=== PATIENT | female | born 1935 | race Caucasian/White ===

== ENCOUNTER → 2016-06-21 | Outpatient (CLI) | payer OTHER ==
[~2016-06-21] MED LIST: ALLO100T PO; AMLO5TAB2 PO; ASPI1TAB69 PO; ATOR40TA16 PO; CHOL100025 CHEW; FISHCAP4 PO; LEVO112T2 PO; LEVOCETIRIZINE; LEVOTAB PO; METO25TA3 PO
== END ==
LOC: CPRE 11:52
PROVIDERS: ATTEND Neurological Surgery
DX: Z01.812 Encounter for preprocedural laboratory examination (principal); M43.16 Spondylolisthesis, lumbar region; M51.36 Other intervertebral disc degeneration, lumbar region

== ENCOUNTER → 2016-06-22 | Day surgery (SDC) | payer OTHER ==
--- NOTE | 2016-06-21 18:40 | MH ---
cc: DAYA BUSBY M.D., DO M.D. SHARMA, KAVITA D.O. DATE OF ADMISSION: 06/22/2016 ADMITTING DIAGNOSIS: Lumbar spinal stenosis. HISTORY OF PRESENT ILLNESS: This is an 81 year-old female who we initially saw in the office for an evaluation of low back pain in September of 2013. She has previously had lumbar spine surgery in [address] Armijo which the records revealed a left L2-L3 microdiskectomy. She states she had two bad discs and had surgery on one. Although she improved after surgery, she had chronic low back pain since then. She stated at that time that she had left leg weakness and has fallen. She also has vascular disease in her legs and has had a right iliac stent placed several years ago, and in July of 2013, has had another stent placed in the left iliac artery. She has had extensive pain management which she states did not help. She has also had physical therapy which did not help with her pain. She has had several follow ups since her initial evaluation, in which she continued to complain of chronic low back pain and difficulty with ambulation. She complains of pain at her last visit radiating to bilateral groin as well as posterior thigh to the knees. She denies any paresthesias in the lower extremities. She states that if she sits down or lays down her pain improves. She complained of the left knee buckling but states that that does not happen often. She has been using a walker for a couple of years. She had physical therapy two years ago which did not help. She has had extensive pain management which also did not help. An MRI scan of the lumbar spine from June 03, 2016 was reviewed which reveals significant L2-L3, L3-L4 spinal stenosis from a combination of disc protrusion, facet arthropathy along with degenerative disc disease and a grade 1, L3-L4, L4-L5 spondylolisthesis. There is also an L1-L2 disc protrusion that appears somewhat improved from the previous MRI scan, although degenerative disc disease persists. PAST MEDICAL HISTORY: 1. Peripheral artery disease, status post stent placement, right and left groin in December of 2007 and November 2013. 2. Previous back surgery with Dr. Armijo in 2003 which was left L2-L3 microdiskectomy. 3. Right eye and muscle surgery in 1947. 4. Tonsillectomy in 1949. CURRENT MEDICATIONS: 1. Levothyroxine 112 milligrams daily. 2. Amlodipine 5 milligrams daily. 3. Aspirin 81 milligrams two tablets daily. This was placed on hold prior to surgical intervention. 4. Atorvastatin 40 milligrams q hs. 5. Metoprolol tartrate 25 milligrams b.i.d. 6. Fish oil 1200 milligrams daily. This was placed on hold prior to surgical intervention. 7. Levocetirizine DHCL 5 milligrams q hs. 8. Vitamin D3 2000 IU daily. 9. Allopurinol 100 milligrams p.o. daily ALLERGIES: OXYBUTYNIN LISINOPRIL CLASS OF MEDICATION, ARBS. ROM-PURE TOLTERODINE TARTRATE FAMILY HISTORY: Her father at 69 years old, heart disease. Mother at 83 years old, leukemia. Brother age 59, defective heart valve. Sister who is at 74 years old, another sister who is alive at 79 years old. SOCIAL HISTORY: She is . She has two children. She lives with her . She quit smoking in 2002. She does not drink alcohol. REVIEW OF SYSTEMS: CONSTITUTIONAL: She denies any fever or chills. EARS, NOSE, AND THROAT: No pharyngitis, exudates, or blood draining from nose. CARDIOVASCULAR: Denies chest pain or palpitations. RESPIRATORY: No cough or shortness of breath. GENITOURINARY: No dysuria, polyuria. MUSCULOSKELETAL: Positive for low back pain. SKIN: Positive for rashes and itching. NEUROLOGIC: No difficulty with speech or memory. GASTROINTESTINAL: No nausea, vomiting or abdominal pain. PSYCHIATRIC: Denies any anxiety or depression symptoms. ENDOCRINE: No polyuria, polydipsia. HEMATOLOGIC: No bruising or bleeding tendencies. PHYSICAL EXAMINATION: HEAD: Normocephalic, atraumatic. NECK: Supple. No carotid bruits heard on auscultation. LUNGS: Clear to auscultation bilaterally. HEART: Regular rate and rhythm. Normal S1, S2. ABDOMEN: Soft, nontender. Positive bowel sounds. SKIN: No cyanosis or erythema. MUSCULOSKELETAL: Strength is 5/5 in the lower extremities. She ambulates with a walker. NEUROLOGIC: The patient is awake, alert and oriented. Cranial nerves II through XII appear grossly intact. Speech is fluent. Comprehension is good. Sensation in the lower extremities is intact. Reflexes are 2+ in the lower extremities. IMPRESSION AND PLAN The patient is an 81 year-old female with a chronic history of low back pain which is progressively getting worse along with neurogenic claudication symptoms. She is unable to handle more than 30 feet even with a walker because of worsening pain and symptoms. Standing and cooking have became very difficult for her. She has failed conservative treatment measures including physical therapy and interventional pain management. The patient wants to proceed with surgical intervention. She has post laminectomy syndrome at the L2-L3 level as well as advanced stenosis and degenerative disc disease at both levels with a grade 1, L3-L4 spondylolisthesis. There is degenerative changes noted at other levels. We have discussed an L2-L3 and L3-L4 limited decompression versus transforaminal decompression, antibody fusion. The procedure, as well as the risks, benefits, alternative and recovery time were explained in detail to the patient. We have discussed the risks involved with surgery including but not limited to bleeding, infection, muscle weakness, voice hoarseness, difficulty swallowing, heart attack, stroke, blood clots, scar tissue formation among others. The patient is electing to proceed with a more limited approach, being an L2 to L4 laminectomy. Her microsoft exchange administrator, Dr. Hugo Nguyễn, has placed her at a moderate cardiac risk and the patient is willing to accept that. She states she is currently miserable with her symptoms and she is requesting surgical intervention. She was therefore scheduled accordingly. Dictated by: Leandro Darnell PA-C MD RICHARD Ochoa/ANNABEL /5:17 PM /5:29 PM CA
[~2016-06-22] VITALS: Ht 160 cm; Wt 84.8 kg
[~2016-06-22] MED LIST changes: +INSULIN HUMAN REGULAR 1,000 UNITS/10 ML VIAL SQ PRN; +LACTATED RINGER'S 1000 ML IV SCH; -LEVOCETIRIZINE; +METOPROLOL TARTRATE 25 MG TAB PO PRN; +SODIUM CHLOR 0.9% 1000 ML INJ 1,000 ML IV SCH; +SODIUM CHLORID 0.9% 500 ML IV SCH; +VANCOMYCIN HCL 1000 MG ON-CALL/NS 250 ML IV SCH
[2016-06-22 08:39] VITALS: BP 107/72; PULSE 67; RESP 20; TEMP 97.8; O2SAT 97
== END | disposition home or self-care (01) ==
LOC: HSDC 07:36
PROVIDERS: ATTEND Neurological Surgery
DX: M48.06 Spinal stenosis, lumbar region (principal); M51.26 Other intervertebral disc displacement, lumbar region; M96.1 Postlaminectomy syndrome, not elsewhere classified; Z79.82 Long term (current) use of aspirin; Z87.891 Personal history of nicotine dependence; Z53.9 Procedure and treatment not carried out, unspecified reason
CPT/HCPCS: G0463; J3370; J7050; 99211

== ENCOUNTER → 2016-06-23 | Day surgery (SDC) | payer OTHER ==
[~2016-06-23] VITALS: Ht 160 cm; Wt 85.1 kg
[2016-06-23 06:49] VITALS: BP 107/68; PULSE 68; RESP 20; TEMP 98.2; O2SAT 97
== END | disposition home or self-care (01) ==
LOC: HSDC 05:22
PROVIDERS: ATTEND Neurological Surgery
DX: M54.9 Dorsalgia, unspecified (principal); Z53.8 Procedure and treatment not carried out for other reasons
CPT/HCPCS: G0463; J7120; 99211

== ENCOUNTER 2016-06-28 06:05 | Inpatient (IN) | payer OTHER, MEDICARE ==
[~2016-06-28] VITALS: Ht 160 cm; Wt 84.0 kg
[~2016-06-28 06:05] MED LIST changes: -INSULIN HUMAN REGULAR 1,000 UNITS/10 ML VIAL SQ PRN; -LACTATED RINGER'S 1000 ML IV SCH; -METOPROLOL TARTRATE 25 MG TAB PO PRN; -SODIUM CHLOR 0.9% 1000 ML INJ 1,000 ML IV SCH; -SODIUM CHLORID 0.9% 500 ML IV SCH; -VANCOMYCIN HCL 1000 MG ON-CALL/NS 250 ML IV SCH
[2016-06-28] MEDS ORDERED: VANCOMYCIN HCL 1000 MG VIAL ONE ×2 (06:57→08:35)
[2016-06-28] MEDS ORDERED: LACTATED RINGER'S 1000 ML INJ 1,000 ML ONE (06:57)
[2016-06-28] MEDS ORDERED: SODIUM CHLOR 0.9% 250 ML INJ 250 ML ONE (06:57)
[2016-06-28] MEDS ORDERED: METOPROLOL TARTRATE 25 MG TAB PO PRN (07:00)
[2016-06-28] MEDS ORDERED: INSULIN HUMAN REGULAR 1,000 UNITS/10 ML VIAL SQ PRN (07:00)
[2016-06-28] MEDS ORDERED: LACTATED RINGER'S 1000 ML IV SCH (07:00)
[2016-06-28] MEDS ORDERED: SODIUM CHLOR 0.9% 1000 ML INJ 1,000 ML IV SCH (07:00)
[2016-06-28] MEDS ORDERED: SODIUM CHLORID 0.9% 500 ML IV SCH (07:00)
[2016-06-28] MEDS ORDERED: VANCOMYCIN HCL 1000 MG ON-CALL/NS 250 ML IV SCH ×2 (07:00)
[2016-06-28] MEDS ORDERED: CHLORHEXIDINE GLUCONATE 2 % 1 PACK (2 CLOTHS)(taper/protocol) TOP SCH (07:00)
[2016-06-28 07:08] VITALS: BP 116/91; PULSE 75; RESP 18; TEMP 98.1; O2SAT 96
[2016-06-28] MEDS ORDERED: POVIDONE IODINE 5% (ANTISEPSIS KIT) 4 APPLICATIONS NASAL SCH (07:15)
[2016-06-28] MEDS ORDERED: BUPIVACAINE/EPINEPHRINE 0.5% PF 30 ML VIAL ONE (08:35)
[2016-06-28] MEDS ORDERED: THROMBIN (TOPICAL) 5,000 UNIT VIAL ONE (08:35)
[2016-06-28] MEDS ORDERED: methylPREDNISolone ACETATE 40 MG/ML VIAL ONE (08:35)
[2016-06-28] MEDS ORDERED: GELFOAM SIZE 100 ONE (08:35)
[2016-06-28] MEDS ORDERED: NEOSTIGMINE 3 MG/3 ML SYR IV ONE (12:00)
[2016-06-28] MEDS ORDERED: PROPOFOL 200 MG/20 ML AMP IV ONE (12:00)
[2016-06-28] MEDS ORDERED: ePHEDrine/NS 25 MG/5 ML SYR IV ONE (12:00)
[2016-06-28] MEDS ORDERED: DO NOT ADM ANY ANTICOAGULANT DRUGS XX PRN (12:00)
[2016-06-28] MEDS ORDERED: NS + KCL 20 MEQ INJ 1,000 ML IV SCH (12:29)
[2016-06-28] MEDS ORDERED: MENTHOL LOZENGE SUCK-ON PRN (12:30)
[2016-06-28] MEDS ORDERED: CYCLOBENZAPRINE HCL 10 MG TAB PO PRN (12:30)
[2016-06-28] MEDS ORDERED: HYDROmorphone HCL PF 1 MG/ML VIAL IV PUSH PRN (12:30)
[2016-06-28] MEDS ORDERED: cloNIDine HCL 0.1 MG TAB PO PRN (12:30)
[2016-06-28] MEDS ORDERED: RESP: ALBUTEROL 2.5 MG/3 ML NEB (PRN) NEB (12:30)
[2016-06-28] MEDS ORDERED: METOCLOPRAMIDE HCL 10 MG/2 ML VIAL IV PUSH PRN (12:30)
[2016-06-28] MEDS ORDERED: ALUMINUM/MAGNESIUM/SIMETH 30 ML CUP PO PRN (12:30)
[2016-06-28] MEDS ORDERED: BISACODYL 10 MG SUPP PR PRN (12:30)
[2016-06-28] MEDS ORDERED: MAGNESIUM HYDROXIDE SUSP 30 ML CUP PO PRN (12:30)
[2016-06-28] MEDS ORDERED: ONDANSETRON HCL 4 MG/2 ML VIAL IV PRN (12:30)
[2016-06-28] MEDS ORDERED: ZOLPIDEM TARTRATE 5 MG TAB PO PRN (12:30)
[2016-06-28] MEDS: SODIUM CHLOR 0.9% 1000 ML INJ 1,000 ML IV SCH (12:30)
[2016-06-28] MEDS ORDERED: ACETAMINOPHEN 325 MG TAB PO PRN (12:30)
--- NOTE | 2016-06-28 12:37 | PD.OP ---
MD Katelyn Martino, Operative Report Date of Surgery: Jun 28, 2016 Preoperative Diagnosis: Intractable low back pain with severe neurogenic claudication; L2-3, L3-4 and L4 -5 spinal stenosis from a L2-3 disc herniation and multilevel facet and ligamentum flavum hypertrophy; postlaminectomy syndrome Postoperative Diagnosis: Same Procedure: Lumbar L2, L3, L4 and L5 decompressive laminectomies with medial facetectomies; L2-3 microdiscectomy; microsurgical technique Anesthesia: Gen. endotracheal by Rigo Juárez Surgeon: Bryce Lopez M.D. Imaging Science Professor(s): Alexandria Montiel Operation and Findings: Following administration of general endotracheal anesthesia, patient received vancomycin 1 g intravenously. Sequential compression devices were placed for DVT prophylaxis along with a Bunn catheter. She was then turned in prone position on Luke frame and the Hamlet table and all pressure points adequately padded. The lumbar region was then shaved and prepped with a Betadine and ChloraPrep. Sterile draping undertaken with Ioban. Midline incision overlying the L2-L5 levels incorporating the previous incision site was then made after infiltrating the skin with 0.5% Marcaine with epinephrine solution. The skin incision was made extending down through the fascia and then using the subperiosteal plane on the left side the muscular attachments to the spinous process and lamina were detached. At the L4-5 level extensive scar tissue is noted along the spinal canal epidural space. Intraoperative fluoroscopy was used for level confirmation and further dissection undertaken using microtechnique with microscope magnification. The left sided L2 to L5 lamina was then drilled out and the underlying ligamentum flavum also removed. There was significant facet arthropathy noted in the medial portion of facet was also resected and the lateral recess decompressed bilaterally. Epidural venous stasis which he with the bipolar cautery along with Gelfoam and thrombin and bone wax used at the laminotomy edges for hemostasis. The thecal sac was then gently retracted with a nerve root retractor and an extruded disc fragment was identified which was inferiorly migrated identified at the L2-3 level on the left side. Fragments were removed with pituitary forceps and the nerve root impingement along with thecal sac compression decompressed. Dural leak was encountered when dissecting the L4-5 1 scar tissue from the dura and primary closure with 5-0 Prolene undertaken but the dura was very friable a watertight closure could not be obtained. The durotomy was reinforced with compressed Gelfoam and DuraSeal. Valsalva maneuvers and no CSF leak was noted this point. The area was then copiously irrigated with vancomycin solution. The retractors removed and the muscle fascia proximal using 2-0 Vicryl interrupted stitches. 3-0 Vicryl subcuticular stitches were also placed in an interrupted fashion and planned skin closure was with BioGlue dressing. A sterile dressing was then applied and the patient then turned in the supine position and extubated and taken to recovery room in stable condition. There were no intraoperative complications and all sponge and needle count was correct at the end of the procedure. Estimated blood loss about 150 cc. Bryce Lopez MD Jun 28, 2016 12:37
[2016-06-28] MEDS ORDERED: ceFAZolin 2 GM PREMIX 50 ML ONE (12:48)
[2016-06-28] MEDS ORDERED: NS + KCL 20 MEQ INJ 1,000 ML ONE (12:48)
[2016-06-28] MEDS ORDERED: ceFAZolin INJ 1,000 MG VIAL ONE (12:54)
[2016-06-28] MEDS ORDERED: SODIUM CHLORIDE 0.9% INJ 100 ML ONE (12:55)
--- NOTE | 2016-06-28 13:16 | RADRPT ---
EXAM DATE/TIME: 06/28/2016 08:36 [facility] COMPARISON: No previous studies available for comparison. INDICATIONS : L2-L3-L4 lumbar laminotomies. Level localization. MEDICAL HISTORY : None. SURGICAL HISTORY : None. ENCOUNTER: Initial ACUITY: 1 day PAIN SCORE: Non-responsive. LOCATION: Lumbar spine. FINDINGS: A single lateral view of the lumbar spine was performed. The there are 2 metallic markers posterior t o the L3 and L1 vertebral bodies. Metallic retractor posterior to the L2-3 disc interspace. There is a grade 1 retrolisthesis of L2 on 3 and a grade 1 anterolisthesis of L3 on 4 and L4 on 5. Vertebral b nik heights are maintained. There appear to be stents in the region of the iliac arteries. CONCLUSION: Metallic markers at the L1 and L3 vertebral bodies with a metallic retractor posterior to the L2 -3 disc interspace. Demario Alonzo MD on June 28, 2016 at 13:12 Board Certified Radiologist. This report was verified electronically.
[2016-06-28] MEDS ORDERED: PILL SPLITTER OTHER PRN (15:15)
[2016-06-28 20:00] VITALS: BP 122/59; PULSE 86; RESP 18; TEMP 97; O2SAT 97
[2016-06-28] MEDS ORDERED: ATORVASTATIN 40 MG TAB PO SCH (21:00)
[2016-06-28] MEDS ORDERED: LEVOCETIRIZINE PO SCH (21:00)
[2016-06-28] MEDS ORDERED: [UNRECOGNIZED DRUG - OTHER] PO SCH (21:00)
[2016-06-28] MEDS: SODIUM CHLORIDE 0.9% FLUSH 5 ML FLUSH IV FLUSH SCH (21:00)
[2016-06-28] MEDS: METOPROLOL TARTRATE 25 MG TAB PO SCH (21:00)
[2016-06-28] MEDS: DOCUSATE SODIUM 100 MG CAP PO SCH (23:33)
[2016-06-29 04:00] VITALS: BP 133/53; PULSE 90; RESP 18; TEMP 98.5; O2SAT 93
[2016-06-29] MEDS: SODIUM CHLOR 0.9% 1000 ML INJ 1,000 ML IV SCH ×2 (05:19→08:30)
[2016-06-29] MEDS ORDERED: LEVOTHYROXINE SODIUM 112 MCG TAB PO SCH (06:00)
[2016-06-29 08:00] VITALS: BP 140/66; PULSE 82; RESP 18; TEMP 96.5; O2SAT 96
[2016-06-29] MEDS: METOPROLOL TARTRATE 25 MG TAB PO SCH (08:26)
[2016-06-29] MEDS: DOCUSATE SODIUM 100 MG CAP PO SCH (08:26)
[2016-06-29] MEDS: SODIUM CHLORIDE 0.9% FLUSH 5 ML FLUSH IV FLUSH SCH (08:28)
[2016-06-29] MEDS ORDERED: CHOLECALCIFEROL (VIT D3) 1000 UNIT TAB PO SCH (09:00)
[2016-06-29] MEDS ORDERED: ALLOPURINOL 100 MG TAB PO SCH (09:00)
[2016-06-29] MEDS ORDERED: amLODIPine BESYLATE 5 MG TAB PO SCH (09:00)
[2016-06-29] MEDS ORDERED: ASPIRIN EC 81 MG TABEC PO SCH (09:00)
--- NOTE | 2016-06-29 09:24 | HHI.NSPN ---
History Chief Complaint: Incisional discomfort Interval History 06/29/16: Pt doing well this morning s/p L2-L5 decompressive laminectomy with medial facetectomy and L2/L3 microdiscectomy. She has incisional discomfort. No radiculopathy or paresthesias in LEs. No headaches. Review of Systems General: Negative for: fever, chills, insomnia Respiratory: Negative for: shortness of breath, cough, sputum Cardiovascular: Negative for: chest pain Gastrointestinal: Negative for: nausea, vomitting, diarrhea, constipation Exam Results Vital Signs Date Time Temp Pulse Resp B/P Pulse Ox O2 Delivery O2 Flow Rate FiO2 06/29/16 04:00 98.5 90 18 133/53 93 06/28/16 16:40 Nasal Cannula 3 Intake and Output 06/28/16 06/28/16 06/29/16 08:00 16:00 00:00 Intake Total 1700 ml 400 ml Output Total 550 ml 1000 ml Balance 1150 ml -600 ml Physical Examination Resp: CTA bilaterally Heart: NSR no murmurs Abd: Soft positive bs Skin: Incision clean and dry. No erythema. No drainage. Muscle: Moves LEs with good strength. Pt on bedrest 24 hours from surgery for dural leak. Neuro: Pt awake and alert. Follows commands well. Speech clear and appropriate. sensation in LEs intact. Lab, Micro, Other Results Last Impressions Lumbar Spine X-Ray 06/28/16 0000 Signed Impressions: Service Date/Time: Tuesday, June 28, 2016 08:36 - CONCLUSION: Metallic markers at the L1 and L3 vertebral bodies with a metallic retractor posterior to the L2-3 disc interspace. Demario Alonzo MD 06/28/16 06/28/16 06/29/16 15:00 23:00 07:00 Intake Total 1700 ml 400 ml Output Total 550 ml 1000 ml 3000 ml Balance 1150 ml -600 ml -3000 ml Intake Oral 100 ml Other 1700 ml 300 ml Output Urine Total 400 ml 1000 ml 3000 ml Estimated Blood Loss 150 ml # Bowel Movements 2 Medical Decision Making Impression and Plan A: 81 y/o FM s/p L2-L5 decompressive laminectomy with medical facetectomy and L2/L3 microdiscectomy. P: OOB after 24 hours. If doing well with no headache and ambulating will discharge home. Leandro Darnell Jun 29, 2016 09:24
[2016-06-29 10:40] VITALS: O2SAT 96
[2016-06-29 12:00] VITALS: BP 127/58; PULSE 83; RESP 18; TEMP 96.5; O2SAT 96
--- NOTE | 2016-06-29 14:35 | HHI.FF ---
Face to Face Verification Diagnosis: (1) Spondylolisthesis, lumbar region (2) Postlaminectomy syndrome, lumbar (3) Lumbar stenosis with neurogenic claudication (4) Lumbar degenerative disc disease Physical Therapy Order: Evaluate and Treat, Improve ambulation, Strength and gait training Home Health Nursing Order: Wound care and dressing changes Nursing assessment with vital signs I have seen patient Mikayla West on 06/29/16. My clinical findings support the need for the requested home health care services because: Deconditioned w/ increased weakness High risk of falls I certify that my clinical findings support that this patient is homebound because: Post-op weakness Unsteady gait/balance Unable to use public transportation Leandro Darnell Jun 29, 2016 14:35
== END 2016-06-29 15:21 | disposition home health service (06) | DRG 519 ==
LOC: HSDC 06:05 → N05B 16:00
PROVIDERS: ADMIT Neurological Surgery; ATTEND Neurological Surgery
PROC: 0SB20ZZ Excision of Lumbar Vertebral Disc, Open Approach (ICD-10-PCS; 2016-06-28)
PROC: 00QT0ZZ Repair Spinal Meninges, Open Approach (ICD-10-PCS; 2016-06-28)
PROC: 01NB0ZZ Release Lumbar Nerve, Open Approach (ICD-10-PCS; principal; 2016-06-28 08:31)
DX: M51.26 Other intervertebral disc displacement, lumbar region (principal); G97.82 Other postprocedural complications and disorders of nervous system; N18.3 Chronic kidney disease, stage 3 (moderate); I73.9 Peripheral vascular disease, unspecified; G96.0 Cerebrospinal fluid leak; I12.9 Hypertensive chronic kidney disease with stage 1 through stage 4 chronic kidney disease, or unspecified chronic kidney disease; M96.1 Postlaminectomy syndrome, not elsewhere classified; E78.5 Hyperlipidemia, unspecified; Z87.891 Personal history of nicotine dependence; Y83.8 Other surgical procedures as the cause of abnormal reaction of the patient, or of later complication, without mention of misadventure at the time of the procedure; Y92.234 Operating room of hospital as the place of occurrence of the external cause
CPT/HCPCS: 72020; 76000; 94150; J0690; J1030; J2710; J3010; J3370; J3480; J7030; J7050; J7120